=== PATIENT | female | born 1950 | race Caucasian/White ===

== ENCOUNTER → 2016-08-12 | Outpatient (CLI) | payer MEDICARE | END | disposition home or self-care (01) | LOC: LABWHC1 10:39 | PROVIDERS: ATTEND Otolaryngology | DX: J30.9 Allergic rhinitis, unspecified (principal) | CPT/HCPCS: 36415 ==

== ENCOUNTER 2018-07-08 09:53 | Day surgery (SDC) | payer MEDICARE ==
[2018-07-06 10:52] VITALS: BMI 27.9
[~2018-07-08 09:53] MED LIST: LACTATED RINGERS 1,000 ML IV SCH
[2018-07-08 10:37] VITALS: TEMP 98.5
[2018-07-08] MEDS ORDERED: PROPOFOL 10 MG/ML 20 ML VIAL IV ONE (11:25)
[2018-07-08] MEDS ORDERED: LIDOCAINE 1% INJ 10MG/ML (20 ML MDV) ONE (11:25)
--- NOTE | 2018-07-08 11:33 | P.PCN ---
Date of Procedure: 07/08/18 Procedure(s) Performed: BRIEF HISTORY: Patient is a 60-year-old, pleasant, white female, scheduled for an upper endoscopy with possible dilation as a part of variation of GERD and intermittent dysphagia to solids for the last 6 months duration. She has been maintained on Prilosec 20 mg daily.. PROCEDURE PERFORMED: Esophagogastroduodenoscopy with biopsy. PREOPERATIVE DIAGNOSIS: GERD and intermittent dysphagia to solids. IV sedation per anesthesia. PROCEDURE: After informed consent was obtained, the patient was brought into the endoscopy unit. IV sedation was administered by Anesthesia under continuous monitoring. Initially the Olympus GIF-140 video endoscope was inserted into the mouth. Esophagus intubated without any difficulty. It was gradually advanced into the stomach and duodenum and carefully examined. The bulb and the second part of the duodenum appeared normal. The scope at this time was withdrawn to the stomach, adequately insufflated with air, and upon careful examination, mucosa of the antrum and gastritis and biopsies were done from this area. The body, cardia and the fundus appeared normal. The scope was then withdrawn into the esophagus. Moderate size hiatal hernia noted. The GE junction was located at 34 cm from the incisors. The esophagus appeared normal. There were no erosions or ulcerations seen . There was no evidence of esophageal stricture. The proximal cervical esophagus was carefully examined and appeared normal and the patient tolerated the procedure well. IMPRESSION: 1. Small to moderate size hiatal hernia but no evidence of esophageal stricture or esophagitis. 2. Mild antral gastritis. RECOMMENDATIONS: The findings of this examination were discussed with the patient as well as a family. She was advised to follow with the biopsy results. She will continue with Prilosec 20 mg daily and follow antireflux measures..
[2018-07-08 12:40] VITALS: BP 135/83; PULSE 74; RESP 16
== END 2018-07-08 12:10 | disposition home or self-care (01) ==
LOC: ORWHC2ENDO 09:53
PROVIDERS: ATTEND Internal Medicine Gastroenterology
DX: K29.50 Unspecified chronic gastritis without bleeding (principal); K21.9 Gastro-esophageal reflux disease without esophagitis; K44.9 Diaphragmatic hernia without obstruction or gangrene; R13.10 Dysphagia, unspecified; Z79.82 Long term (current) use of aspirin; Z79.899 Other long term (current) drug therapy; Z88.8 Allergy status to other drugs, medicaments and biological substances
CPT/HCPCS: 43239; 88305

== ENCOUNTER 2019-11-10 02:09 | Emergency (ER) | payer MEDICARE ==
[2019-11-10 02:18] VITALS: BP 182/99; PULSE 78; RESP 18; TEMP 98.2
[2019-11-10] MEDS ORDERED: METOCLOPRAMIDE 5 MG/ML 2 ML VIAL IVP STA (02:53)
[2019-11-10] MEDS ORDERED: SODIUM CHLORIDE 0.9% 500 ML 500 ML IV ONE (02:53)
[2019-11-10] MEDS ORDERED: MORPHINE SULFATE 4 MG/ML SYRINGE IVP STA (02:56)
--- NOTE | 2019-11-10 03:09 | ED ---
Headache HPI - General Chief Complaint: Headache Stated Complaint: Headache Time Seen by Provider: 11/10/19 02:46 Mode of arrival: ambulatory Limitations: no limitations - History of Present Illness Initial Comments: Here in the previously healthy 69-year-old female who presents the ER today for evaluation of a left frontal headache. Patient reports that headache began suddenly, was in the eye area. Was associated with some watering of the eye but no runny nose. She has no history of headaches no history of migraines never had a headache like this. She reports she took 2 aspirin and the headache seems to be improving upon arrival however since this is so atypical for her she decided to come to ER. - Related Data Home Medications Medication Instructions Recorded Confirmed Omeprazole [PriLOSEC] 20 mg PO AC-BRKFST 07/01/15 07/08/18 Allergies Allergy/AdvReac Type Severity Reaction Status Date / Time hydroxyzine HCl [From Atarax] Allergy Severe dizzy, Verified 11/10/19 02:18 could not walk, SOB milk Allergy Unknown Verified 11/10/19 02:18 pineapple Allergy Unknown Verified 11/10/19 02:18 walnut Allergy Unknown Verified 11/10/19 02:18 Review of Systems ROS Statement: Those systems with pertinent positive or pertinent negative responses have been documented in the HPI. ROS Other: All systems not noted in ROS Statement are negative. Past Medical History Past Medical History: GERD/Reflux, Skin Disorder Additional Past Medical History / Comment(s): hiatal hernia, eczema, History of Any Multi-Drug Resistant Organisms: None Reported Past Surgical History: Breast Surgery Additional Past Surgical History / Comment(s): cyst removed from left breast Past Anesthesia/Blood Transfusion Reactions: Motion Sickness Past Psychological History: Anxiety Smoking Status: Never smoker Past Alcohol Use History: Rare Past Drug Use History: None Reported - Past Family History Mother Family Medical History: Cancer Additional Family Medical History / Comment(s): "was a bleeder" General Exam - General Exam Comments Initial Comments: Physical Exam GENERAL: Patient is well-developed and well-nourished. Patient is nontoxic and well- hydrated and is in no distress. HENT: Normocephalic, Atraumatic. EYES: PERRL, EOMI PULMONARY: Unlabored respirations. No audible rales rhonchi or wheezing was noted. CARDIOVASCULAR: There is a regular rate and rhythm without any murmurs gallops or rubs. ABDOMEN: Soft and nontender with normal bowel sounds. SKIN: Skin is clear with no lesions or rashes and otherwise unremarkable. : Deferred NEUROLOGIC: Patient is alert and oriented x3. Moving all extremities spontaneously Cranial nerves II through XII grossly intact MUSCULOSKELETAL: Normal extremities with adequate strength and full range of motion. No lower extremity swelling or edema. No calf tenderness. PSYCHIATRIC: Normal psychiatric evaluation. Limitations: no limitations Course Vital Signs 11/10/19 02:13 Temperature 98.2 F Pulse Rate 78 Respiratory 18 Rate Blood Pressure 182/99 O2 Sat by Pulse 98 Oximetry Medical Decision Making - Medical Decision Making Patient was seen and evaluated history is obtained from patient and at bedside Previously healthy 69-year-old female had tearing eye and pain that she described as a left-sided headache, no focal neurologic deficits Headaches aren't improving upon arrival however patient was placed on 2 L nasal cannula oxygen and given her age and computed tomography scan of the head was obtained Patient was reevaluated and reported her headache resolved completely CT results were unremarkable, these were discussed with the patient. This time patient's comfortable the plan for discharge home and outpatient follow-up Disposition Clinical Impression: Cluster headache Disposition: HOME SELF-CARE Condition: Stable Instructions (If sedation given, give patient instructions): Acute Headache (ED) Is patient prescribed a controlled substance at d/c from ED?: No Referrals: Semaj Mar DO [Primary Care Provider] - 1-2 days
--- NOTE | 2019-11-10 03:15 | CT ---
EXAMINATION TYPE: CT brain wo con DATE OF EXAM: 11/10/2019 COMPARISON: None HISTORY: Headache CT DLP: 1142.40 mGycm Automated exposure control for dose reduction was used. There is cerebral cortical atrophy. There is no mass effect nor midline shift. There is no sign of in tracranial hemorrhage. The calvarium is intact. There is no evidence of cerebral edema. Skull base is intact. IMPRESSION: Cerebral atrophy. No acute intracranial abnormality.
== END 2019-11-10 04:14 | disposition home or self-care (01) ==
LOC: EC 02:09
DX: G44.009 Cluster headache syndrome, unspecified, not intractable (principal); K21.9 Gastro-esophageal reflux disease without esophagitis; Z79.899 Other long term (current) drug therapy; Z88.8 Allergy status to other drugs, medicaments and biological substances; Z91.011 Allergy to milk products; Z91.018 Allergy to other foods
CPT/HCPCS: 70450; 96374; 96375; 99284

== ENCOUNTER → 2020-12-28 | Outpatient (CLI) | payer MEDICARE ==
--- NOTE | 2021-01-03 12:26 | MM ---
Reason for exam: screening (asymptomatic). Last mammogram was performed 9 years and 7 months ago. History: Patient is postmenopausal. Benign excisional biopsy of the left breast, February 07, 2006. Physical Findings: A clinical breast exam by your physician is recommended on an annual basis and results should be correlated with mammographic findings. MG 3D Screening Mammo W/Cad Bilateral CC and MLO view(s) were taken. Prior study comparison: May 27, 2011, bilateral digital screening mammo w/CAD. July 03, 2006, left diagnostic mammogram w/CAD. The breast tissue is heterogeneously dense. This may lower the sensitivity of mammography. Stable benign calcifications. No significant changes when compared with prior studies. ASSESSMENT: Benign, BI-RAD 2 RECOMMENDATION: Routine screening mammogram of both breasts in 1 year.
== END | disposition home or self-care (01) ==
LOC: RADMAMWWP 15:35
PROVIDERS: ATTEND Internal Medicine
DX: Z12.31 Encounter for screening mammogram for malignant neoplasm of breast (principal); Z78.0 Asymptomatic menopausal state
CPT/HCPCS: 77063; 77067

== ENCOUNTER → 2021-01-01 | Outpatient (CLI) | payer MEDICARE ==
--- NOTE | 2021-01-02 17:23 | BD ---
EXAMINATION TYPE: Axial Bone Density DATE OF EXAM: 01/01/2021 COMPARISON: NONE CLINICAL HISTORY: Height: 62 IN Weight: 186 LBS FRAX RISK QUESTIONS: History of Fracture in Adulthood: LT KNEE AGE 65 RISK FACTORS HISTORY OF: Active: YES Diet low in dairy products/other sources of calcium: YES Postmenopausal woman: AGE 52 MEDICATIONS: Additional Medications: CALCIUM, VIT D, OMEPRAZOLE, VITAMINS EXAM MEASUREMENTS: Bone mineral densitometry was performed using the [employer] System. Bone mineral density as measured about the Lumbar spine is: ----- L1-L4(G/cm2): 1.125 T Score Values are as follows: ----- L2: -0.4 ----- L3: 0.2 ----- L4: -1.0 ----- L1-L4: -0.5 Bone mineral density BASELINE Bone mineral density about the R hip (g/cm2): 0.789 Bone mineral density about the L hip (g/cm2): 0.781 T Score values are as follows: -----R Neck: -1.8 -----L Neck: -1.8 -----R Total: -1.9 -----L Total: -1.7 Bone mineral density BASELINE IMPRESSION: Osteopenia (T Score between -2.5 and -1). There is slightly increased risk of fracture and the patient may be considered for treatment. Re-Screen 2-5 years. NOTE: T-SCORE=SD OF THE YOUNG ADULT MEAN.
== END | disposition home or self-care (01) ==
LOC: RADBDWWP 16:08
PROVIDERS: ATTEND Internal Medicine
DX: M85.89 Other specified disorders of bone density and structure, multiple sites (principal)
CPT/HCPCS: 77080

== ENCOUNTER 2021-02-25 13:04 | Emergency (ER) | payer MEDICARE ==
[2021-02-25 13:23] VITALS: RESP 18
[2021-02-25] MEDS ORDERED: KETOROLAC 15 MG/ML 1 ML VIAL IVP STA (13:26)
[2021-02-25] MEDS ORDERED: SODIUM CHLORIDE 0.9% 500 ML 500 ML IV STA (13:36)
--- NOTE | 2021-02-25 13:38 | ED ---
General Adult HPI - General Chief complaint: Recheck/Abnormal Lab/Rx Stated complaint: Fever,Headache Time Seen by Provider: 02/25/21 13:25 Source: patient Mode of arrival: ambulatory Limitations: no limitations - History of Present Illness Initial comments: Dictation was produced using [employer] dictation software. please excuse any grammatical, word or spelling errors. Chief Complaint: 70-year-old female presents emergency department for myalgias, headache, fever nausea after pfizer covid vaccine booster History of Present Illness: Patient is a 70-year-old female she has no significant past medical history. Patient states that yesterday she had her coronavirus vaccine booster from [employer] She had the vaccine yesterday aftern oon. That night she began having symptoms of fever, chills, headache and myalgias. Patient states she had similar symptoms after the second shot of the vaccine series back in July. States that her symptoms weren't this severe. Patient reports feeling fine earlier in the day yesterday. She denies any chest pain or shortness of breath. The ROS documented in this emergency department record has been reviewed and confirmed by me. Those systems with pertinent positive or negative responses h ave been documented in the HPI. All other systems are other negative and/or noncontributory. PHYSICAL EXAM: General Impression: Alert and oriented x3, not in acute distress HEENT: Normocephalic atraumatic, extra-ocular movements intact, pupils equal and reactive to light bilaterally, mucous membranes moist. Cardiovascular: Heart regular rate and rhythm Chest: Able to complete full sentences, no retractions, no tachypnea Abdomen: abdomen soft, non-tender, non-distended, no organomegaly Musculoskeletal: Pulses present and equal in all extremities, no peripheral edema Motor: no focal deficits noted Neurological: CN II-XII grossly intact, no focal motor or sensory deficits noted Skin: Intact with no visualized rashes Psych: Normal affect and mood ED course: 70-year-old female presents to the emergency department for symptoms of myalgias headache, poor appetite after vaccine booster. Signs upon arrival are within acceptable limits. Discussed with patient that these are expected symptoms after vaccine booster. Patient would like to have basic labs and fluids.Laboratory evaluation obtained. CBC metabolic panel is within acceptable limits. Carinal virus is negative. Patient reevaluated at bedside at 3:00 PM 5 be stable medical condition. Patient is provided reassurance patient is told that she is expected to have these symptoms after having the vaccine booster. 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 Patient otherwise stable and agreeable for discharge. - Related Data Home Medications Medication Instructions Recorded Confirmed Omeprazole [PriLOSEC] 20 mg PO AC-BRKFST 07/01/15 02/25/21 Ascorbic Acid [Vitamin C] 1,000 mg PO DAILY 02/25/21 02/25/21 Aspirin 362 mg PO BID PRN 02/25/21 02/25/21 Calcium Carbonate [Calcium] 600 mg PO DAILY 02/25/21 02/25/21 Cholecalciferol [Vitamin D3 (25 25 mcg PO DAILY 02/25/21 02/25/21 Mcg = 1000 Iu)] Vitamin B Complex 1 tab PO DAILY 02/25/21 02/25/21 Allergies Allergy/AdvReac Type Severity Reaction Status Date / Time hydroxyzine HCl [From Atarax] Allergy Severe dizzy, Verified 02/25/21 14:04 could not walk, SOB milk Allergy Unknown Verified 02/25/21 14:04 pineapple Allergy Unknown Verified 02/25/21 14:04 walnut Allergy Unknown Verified 02/25/21 14:04 Review of Systems ROS Statement: Those systems with pertinent positive or pertinent negative responses have been documented in the HPI. ROS Other: All systems not noted in ROS Statement are negative. Past Medical History Past Medical History: GERD/Reflux, Skin Disorder Additional Past Medical History / Comment(s): hiatal hernia, eczema, History of Any Multi-Drug Resistant Organisms: None Reported Past Surgical History: Breast Surgery Additional Past Surgical History / Comment(s): cyst removed from left breast Past Anesthesia/Blood Transfusion Reactions: Motion Sickness Past Psychological History: Anxiety Smoking Status: Never smoker Past Alcohol Use History: Rare Past Drug Use History: None Reported - Past Family History Mother Family Medical History: Cancer Additional Family Medical History / Comment(s): "was a bleeder" General Exam Limitations: no limitations Course Vital Signs 02/25/21 02/25/21 13:17 14:07 Temperature 99.1 F Pulse Rate 106 H Respiratory 18 18 Rate Blood Pressure 147/91 O2 Sat by Pulse 98 Oximetry Medical Decision Making - Lab Data Result diagrams: 02/25/21 14:07 02/25/21 14:07 Lab Results 02/25/21 02/25/21 02/25/21 Range/Units 14:07 14:07 14:14 WBC 7.7 (3.8-10.6) k/uL RBC 4.46 (3.80-5.40) m/uL Hgb 14.1 (11.4-16.0) gm/dL Hct 42.6 (34.0-46.0) % MCV 95.5 (80.0-100.0) fL MCH 31.6 (25.0-35.0) pg MCHC 33.1 (31.0-37.0) g/dL RDW 12.3 (11.5-15.5) % Plt Count 321 (150-450) k/uL MPV 6.6 Neutrophils % 91 % Lymphocytes % 4 % Monocytes % 3 % Eosinophils % 0 % Basophils % 1 % Neutrophils # 7.0 (1.3-7.7) k/uL Lymphocytes # 0.3 L (1.0-4.8) k/uL Monocytes # 0.2 (0-1.0) k/uL Eosinophils # 0.0 (0-0.7) k/uL Basophils # 0.0 (0-0.2) k/uL Sodium 133 L (137-145) mmol/L Potassium 4.4 (3.5-5.1) mmol/L Chloride 100 (98-107) mmol/L Carbon Dioxide 21 L (22-30) mmol/L Anion Gap 12 mmol/L BUN 10 (7-17) mg/dL Creatinine 0.66 (0.52-1.04) mg/dL Est GFR (CKD-EPI)AfAm >90 (>60 ml/min/1.73 sqM) Est GFR (CKD-EPI)NonAf 90 (>60 ml/min/1.73 sqM) Glucose 125 H (74-99) mg/dL Calcium 8.9 (8.4-10.2) mg/dL Coronavirus (PCR) Not Detected (Not Detectd) Disposition Clinical Impression: Vaccine reaction Disposition: HOME SELF-CARE Condition: Good Instructions (If sedation given, give patient instructions): Coronavirus Disease 2019 (COVID-19) Is patient prescribed a controlled substance at d/c from ED?: No Referrals: Fady White MD [Primary Care Provider] - 1-2 days
[2021-02-25 14:20] LABS: Basophils % (A) 1 %; Eosinophils % (A) 0 %; HCT 42.6 % (34.0-46.0); HGB 14.1 gm/dL (11.4-16.0); Lymphocytes # (A) 0.3 k/uL (1.0-4.8); Lymphocytes % (A) 4 %; MCH 31.6 pg (25.0-35.0); MCHC 33.1 g/dL (31.0-37.0); MCV 95.5 fL (80.0-100.0); Mean Platelet Volume 6.6; Monocytes # (A) 0.2 k/uL (0-1.0); Monocytes % (A) 3 %; Neutrophils % (A) 91 %; Platelet Count 321 k/uL (150-450); RBC 4.46 m/uL (3.80-5.40); RDW 12.3 % (11.5-15.5); WBC 7.7 k/uL (3.8-10.6)
[2021-02-25 14:30] LABS: African American GFR (CKD) >90 (>60 ml/min/1.73 sqM); Anion Gap 12 mmol/L; Blood Urea Nitrogen 10 mg/dL (7-17); Calcium 8.9 mg/dL (8.4-10.2); Carbon Dioxide 21 mmol/L (22-30); Chloride 100 mmol/L (98-107); Glucose 125 mg/dL (74-99); Non-African American GFR(CKD) 90 (>60 ml/min/1.73 sqM); Sodium 133 mmol/L (137-145)
[2021-02-25 14:51] LABS: Potassium 4.4 mmol/L (3.5-5.1)
[2021-02-25 15:40] VITALS: BP 144/77; PULSE 87; TEMP 99
== END 2021-02-25 15:39 | disposition home or self-care (01) ==
LOC: EC 13:04
DX: R50.83 Postvaccination fever (principal); R51.9 Headache, unspecified; T50.B95A Adverse effect of other viral vaccines, initial encounter; K21.9 Gastro-esophageal reflux disease without esophagitis; Z79.82 Long term (current) use of aspirin; Z79.899 Other long term (current) drug therapy; Z20.822 Contact with and (suspected) exposure to COVID-19
CPT/HCPCS: 36415; 80048; 85025; 87635; 99284; 96374; J1885; 99283

== ENCOUNTER 2021-10-29 07:13 | Emergency (ER) | payer MEDICARE ==
[2021-10-29 07:19] VITALS: TEMP 99.2
[2021-10-29] MEDS ORDERED: ACETAMINOPHEN TAB 500 MG TAB PO STA (07:40)
[2021-10-29] MEDS ORDERED: IBUPROFEN 600 MG TAB PO STA (07:40)
[2021-10-29] MEDS ORDERED: SODIUM CHLORIDE 0.9% 1,000 ML IV ONE (07:45)
--- NOTE | 2021-10-29 08:00 | ED ---
General Adult HPI - General Chief complaint: Shortness of Breath Stated complaint: COVID+ Time Seen by Provider: 10/29/21 07:19 Source: patient, RN notes reviewed Mode of arrival: ambulatory Limitations: no limitations - History of Present Illness Initial comments: This is a 71-year-old female presents emergency Department with chief complaint of: 19. Patient states she started with symptoms one week ago. Patient states started sore throat, cough congestion bodyaches fevers chills slight nausea. Patient states she just not improvingconcerned which prompted her to come emergency department. Denies any known sick contacts otherwise. Denies any diarrhea,, dysuria - Related Data Home Medications Medication Instructions Recorded Confirmed Omeprazole [PriLOSEC] 20 mg PO AC-BRKFST 07/01/15 02/25/21 Ascorbic Acid [Vitamin C] 1,000 mg PO DAILY 02/25/21 02/25/21 Aspirin 362 mg PO BID PRN 02/25/21 02/25/21 Calcium Carbonate [Calcium] 600 mg PO DAILY 02/25/21 02/25/21 Cholecalciferol [Vitamin D3 (25 25 mcg PO DAILY 02/25/21 02/25/21 Mcg = 1000 Iu)] Vitamin B Complex 1 tab PO DAILY 02/25/21 02/25/21 Allergies Allergy/AdvReac Type Severity Reaction Status Date / Time hydroxyzine HCl [From Atarax] Allergy Severe dizzy, Verified 10/29/21 07:16 could not walk, SOB milk Allergy Unknown Verified 10/29/21 07:16 pineapple Allergy Unknown Verified 10/29/21 07:16 walnut Allergy Unknown Verified 10/29/21 07:16 Review of Systems ROS Statement: Those systems with pertinent positive or pertinent negative responses have been documented in the HPI. ROS Other: All systems not noted in ROS Statement are negative. Past Medical History Past Medical History: GERD/Reflux, Skin Disorder Additional Past Medical History / Comment(s): hiatal hernia, eczema, History of Any Multi-Drug Resistant Organisms: None Reported Past Surgical History: Breast Surgery Additional Past Surgical History / Comment(s): cyst removed from left breast Past Anesthesia/Blood Transfusion Reactions: Motion Sickness Past Psychological History: Anxiety Smoking Status: Never smoker Past Alcohol Use History: Rare Past Drug Use History: None Reported - Past Family History Mother Family Medical History: Cancer Additional Family Medical History / Comment(s): "was a bleeder" General Exam Limitations: no limitations General appearance: alert, in no apparent distress Head exam: Present: atraumatic, normocephalic, normal inspection Eye exam: Present: normal appearance, PERRL, EOMI. Absent: scleral icterus, conjunctival injection, periorbital swelling ENT exam: Present: normal exam, normal oropharynx, mucous membranes moist Neck exam: Present: normal inspection, full ROM. Absent: tenderness, meningismus, lymphadenopathy Respiratory exam: Present: normal lung sounds bilaterally. Absent: respiratory distress, wheezes, rales, rhonchi, stridor Cardiovascular Exam: Present: normal rhythm, tachycardia, normal heart sounds. Absent: systolic murmur, diastolic murmur, rubs, gallop, clicks GI/Abdominal exam: Present: soft, normal bowel sounds. Absent: distended, tenderness, guarding, rebound, rigid Course Vital Signs 10/29/21 07:16 Temperature 99.2 F Pulse Rate 113 H Respiratory 18 Rate Blood Pressure 149/71 O2 Sat by Pulse 97 Oximetry Medical Decision Making - Medical Decision Making Patient will receive monoclonal antibodies. Patient discharged in stable condition advised to continue to alternate Tylenol Motrin return parameters were discussed. Disposition Clinical Impression: COVID-19 Disposition: HOME SELF-CARE Condition: Stable Instructions (If sedation given, give patient instructions): COVID-19 (Coronavirus Disease 2019) (ED) Additional Instructions: Please return to the Emergency Department if symptoms worsen or any other concerns. Is patient prescribed a controlled substance at d/c from ED?: No Referrals: Fady White MD [Primary Care Provider] - 1-2 days Time of Disposition: 07:59
[2021-10-29] MEDS ORDERED: BEBTELOVIMAB (EUA) 175 MG/2 ML VIAL IV ONE (08:30)
--- NOTE | 2021-10-29 08:30 | XR ---
EXAMINATION TYPE: XR chest 2V DATE OF EXAM: 10/29/2021 COMPARISON: NONE HISTORY: Fever and fever TECHNIQUE: Frontal and lateral views of the chest are obtained. FINDINGS: Grossly unremarkable lungs. No pleural effusion or pneumothorax. No gross cardiomegaly. Scl erotic changes within the proximal humeral diaphysis, likely benign. IMPRESSION: No definite acute pulmonary abnormality identified.
[2021-10-29 09:49] VITALS: BP 139/73; PULSE 88; RESP 18
== END 2021-10-29 09:40 | disposition home or self-care (01) ==
LOC: EC 07:13
DX: U07.1 COVID-19 (principal); K21.9 Gastro-esophageal reflux disease without esophagitis; F41.9 Anxiety disorder, unspecified; Z91.011 Allergy to milk products; Z91.018 Allergy to other foods
CPT/HCPCS: 99284; 71046; M0222; Q0222; 96360

== ENCOUNTER → 2023-01-02 | Outpatient (CLI) | payer MEDICARE ==
--- NOTE | 2023-01-02 19:51 | BD ---
EXAMINATION TYPE: Axial Bone Density DATE OF EXAM: 01/02/2023 CLINICAL HISTORY: 72 years old Female. ICD-10 CODE: M81.0 SCREENING Height: 63in Weight: 193lb FRAX RISK QUESTIONS: History of Fracture in Adulthood: yes Secondary Osteoporosis: RISK FACTORS HISTORY OF: Active: yes Diet low in dairy products/other sources of calcium: yes Postmenopausal woman: yes If Premenopausal, do you have irregular periods: MEDICATIONS: Additional Medications: bp med, reflux med Additional History: patella and foot fx EXAM MEASUREMENTS: Bone mineral densitometry was performed using the [employer] System. Bone mineral density as measured about the Lumbar spine is: ----- L1-L4(G/cm2): 1.062 T Score Values are as follows: ----- L1: -1.1 ----- L2: -1.2 ----- L3: -0.9 ----- L4: -1.0 ----- L1-L4: -1.0 Z Score Values are as follows: ----- L1: -0.1 ----- L2: -0.2 ----- L3: 0.1 ----- L4: 0.0 ----- L1-L4: 0.0 Bone mineral density has: Decreased -5.6% since study of: 01-01-21 Bone mineral density about the R hip (g/cm2): 0.779 Bone mineral density about the L hip (g/cm2): 0.788 T Score values are as follows: -----R Neck: -1.6 -----L Neck: -1.6 -----R Total: -1.8 -----L Total: -1.7 Z Score values are as follows: -----R Neck: -0.3 -----L Neck: -0.3 -----R Total: -0.7 -----L Total: -0.7 Bone mineral density has: Decreased -0.4% since study of: 01-01-21 FRAX%s: The graph provided illustrates a 10.4% chance for a major osteoporotic fx and a 1.9% chance f or the hips probability for fx in 10 years time. IMPRESSION: Osteopenia (T Score between -2.5 and -1). There is slightly increased risk of fracture and the patient may be considered for treatment. Re-Screen 2-5 years. NOTE: T-SCORE=SD OF THE YOUNG ADULT MEAN.
--- NOTE | 2023-01-05 23:46 | MM ---
Reason for Exam: Screening (asymptomatic). Last mammogram was performed 2 year(s) and 0 month(s) ago. Patient History: Menarche at age 13. First Full-Term at age 21. Postmenopausal. 02/07/2006, Benign Excisional Biopsy on the left side. Risk Values: Kiara 5 year model risk: 1.9%. NCI Lifetime model risk: 4.8%. Prior Study Comparison: 07/03/2006 Left Diagnostic Mammogram, [facility]. 05/27/2011 Bilateral Screening Mammogram, [facility]. 12/28/2020 Bilateral Screening Mammogram, [facility]. Tissue Density: The breast tissue is heterogeneously dense. This may lower the sensitivity of mammography. Findings: Analyzed By CAD. On the left, medial nodularity on the CC view was not well seen previously. This may represent superimposition shadow but further evaluation is recommended. Otherwise, no significant change. Overall Assessment: Incomplete: need additional imaging evaluation, BI-RAD 0 Management: Special View Mammogram of the left breast. Diagnostic Breast Ultrasound of the left breast. Additional views including 3-D CC rolled lateral and 3-D LM views. Targeted ultrasound based on positioning as determined on additional views. [facility] will attempt to contact patient to return for supplemental views and ultrasound if indicated. Electronically signed and approved by: Rin Cordero M.D. Radiologist
== END | disposition home or self-care (01) ==
LOC: RADMAMWWP 09:53
PROVIDERS: ATTEND Internal Medicine
DX: Z12.31 Encounter for screening mammogram for malignant neoplasm of breast (principal); M81.0 Age-related osteoporosis without current pathological fracture; M85.89 Other specified disorders of bone density and structure, multiple sites; Z78.0 Asymptomatic menopausal state
CPT/HCPCS: 77063; 77067; 77080

== ENCOUNTER → 2023-01-14 | Outpatient (CLI) | payer MEDICARE ==
--- NOTE | 2023-01-14 10:59 | MM ---
Reason for Exam: Additional evaluation requested from abnormal screening. Last screening mammogram was performed less than 1 month ago. Patient History: Menarche at age 13. First Full-Term at age 21. Postmenopausal. 02/07/2006, Benign Excisional Biopsy on the left side. Risk Values: Kiara 5 year model risk: 1.9%. NCI Lifetime model risk: 4.8%. Prior Study Comparison: 05/27/2011 Bilateral Screening Mammogram, [facility]. 12/28/2020 Bilateral Screening Mammogram, [facility]. 01/02/2023 Bilateral MG 3D screening mammo w/cad, [facility]. Tissue Density: Left: There are scattered fibroglandular densities. Findings: Analyzed By CAD. The area of nodular asymmetric density medial aspect of the left breast anterior to middle depth becomes much less defined on spot images as well as 3-D rolled images. Precautionary six-month follow-up recommended. Overall Assessment: Probably benign, BI-RAD 3 Management: Diagnostic Mammogram of the left breast in 6 months. . Results were given to the patient verbally at the time of exam. Patient should continue monthly self-breast exams. A clinical breast exam by your physician is recommended on an annual basis. This exam should not preclude additional follow-up of suspicious palpable abnormalities. Note on Kiara scores and lifetime risk: 1. A Kiara score greater than 3% is considered moderate risk. If this is the case, consider specialist referral to assess eligibility for a risk reducing agent. 2. If overall lifetime risk for the development of breast cancer is 20% or higher, the patient may qualify for future screening with alternating mammogram and breast MRI. Electronically signed and approved by: Rin Cordero M.D. Radiologist
== END | disposition home or self-care (01) ==
LOC: RADMAMWWP 10:11
PROVIDERS: ATTEND Internal Medicine
DX: R92.8 Other abnormal and inconclusive findings on diagnostic imaging of breast (principal); Z78.0 Asymptomatic menopausal state
CPT/HCPCS: 77065; G0279; 77061

== ENCOUNTER 2023-07-08 06:15 | Day surgery (SDC) | payer MEDICARE ==
[2023-07-03 14:57] VITALS: BMI 32.5
[~2023-07-08 06:15] MED LIST changes: -LACTATED RINGERS 1,000 ML IV SCH; +LIDOCAINE 1% (10MG/ML) FOR IV START INTRADERMA PRN
[2023-07-08] MEDS: LACTATED RINGERS 1,000 ML IV SCH (07:07)
[2023-07-08] MEDS ORDERED: MIDAZOLAM 2 MG/2 ML VIAL ONE (07:18)
[2023-07-08] MEDS ORDERED: PROPOFOL 10 MG/ML 20 ML VIAL IV ONE (07:18)
[2023-07-08] MEDS ORDERED: GLYCOPYRROLATE 0.2 MG/ML 2 ML VIAL ONE (07:18)
[2023-07-08] MEDS ORDERED: fentaNYL (PF) 50 MCG/ML 2 ML AMP ONE (07:18)
[2023-07-08 07:23] VITALS: RESP 16; TEMP 98.2
--- NOTE | 2023-07-08 07:53 | P.PCN ---
Date of Procedure: 07/08/23 Procedure(s) Performed: Brief history: Patient is a pleasant 73-year-old white female scheduled for an upper endoscopy as well as colonoscopy as part of evaluation of GERD and screening for colon cancer. Procedure performed: Esophagogastroduodenoscopy with biopsy Colonoscopy with snare polypectomy Preoperative diagnosis: GERD Screening for colon cancer Anesthesia: MAC Procedure: After informed consent was obtained from the patient was brought into the endoscopy unit and IV sedation was administered by anesthesia under continuous monitoring. Initially upper endoscopy was done. The Olympus GF 160 video endoscope was inserted inserted into the mouth and esophagus intubated without any difficulty and was gradually advanced into the stomach and duodenum and carefully examined. The bulb and second part of the duodenum appeared normal. The scope was then withdrawn into the stomach adequately insufflated with air and upon careful examination the antrum had mild antral gastritis and biopsies were done from this area. Mucosa of the body, cardia and fundus appeared normal. The scope was then withdrawn into the esophagus. Small hiatal hernia noted. The GE junction was located at 40 cm to the incisors. It appeared regular with no erythema erosions or ulcerations. Rest of the esophagus appeared normal. Patient tolerated the procedure well. At this time the patient continued to remain sedation. Initial digital rectal examination was normal. Olympus CF 160 video colonoscope was then inserted into the rectum and gradually advanced to the cecum without any difficulty. Careful examination was performed as the scope was gradually being withdrawn. The prep was excellent. The cecum, appeared normal. In the ascending colon there was a 6 mm sessile polyp removed by cold snare polypectomy. Rest of the ascending colon, transverse colon, descending colon, sigmoid colon and rectum appeared normal. There was a 4 mm proximal rectal polyp that was removed by cold snare polypectomy. Scattered sigmoid diverticulosis seen. Retroflexion was performed in the rectum and no lesions were noted. Patient tolerated the procedure well. Impression: 1. Upper endoscopy revealed small hiatal hernia and mild gastritis 2. Colonoscopy revealed 6 mm ascending colon polyp and a 4 mm rectal polyp status post cold snare polypectomy and scattered sigmoid diverticulosis Recommendations: Findings of this examination were discussed with the patient as well as her family. She was advised to follow with the biopsy results. Continue with omeprazole 20 mg daily and follow antireflux measures. If the biopsy result adenoma she can have a repeat colonoscopy in 5 years.
[2023-07-08 08:34] VITALS: BP 130/79; PULSE 87
== END 2023-07-08 08:40 | disposition home or self-care (01) ==
LOC: ORWHC2ENDO 06:15
PROVIDERS: ATTEND Internal Medicine Gastroenterology
DX: Z12.11 Encounter for screening for malignant neoplasm of colon (principal); K29.50 Unspecified chronic gastritis without bleeding; D12.2 Benign neoplasm of ascending colon; D12.8 Benign neoplasm of rectum; K44.9 Diaphragmatic hernia without obstruction or gangrene; K57.30 Diverticulosis of large intestine without perforation or abscess without bleeding; K21.9 Gastro-esophageal reflux disease without esophagitis; I10 Essential (primary) hypertension; E78.5 Hyperlipidemia, unspecified; Z79.899 Other long term (current) drug therapy; Z88.8 Allergy status to other drugs, medicaments and biological substances
CPT/HCPCS: 88305; 45385; 43239; J2250; J3010; J2704

== ENCOUNTER → 2023-07-16 | Outpatient (CLI) | payer MEDICARE ==
--- NOTE | 2023-07-16 07:34 | MM ---
Reason for Exam: Follow-up at short interval from prior study. Last screening mammogram was performed 7 month(s) ago. Patient History: Menarche at age 13. First Full-Term at age 21. Postmenopausal. Risk Values: Kiara 5 year model risk: 1.9%. NCI Lifetime model risk: 4.6%. Prior Study Comparison: 12/28/2020 Bilateral Screening Mammogram, [facility]. 01/02/2023 Bilateral MG 3D screening mammo w/cad, [facility]. 01/14/2023 Left MG 3D work up w/cad LT, [facility]. Tissue Density: Left: There are scattered areas of fibroglandular density. Findings: Analyzed By CAD. Chronic nodularity inner aspect of the left breast posterior depth. The previous nodular asymmetry medial aspect of the left breast and a more anterior to middle depth has become less pronounced. Additional short interval follow-up recommended. Otherwise, no significant change. Overall Assessment: Probably benign, BI-RAD 3 Management: Diagnostic Mammogram of both breasts in 6 months. Total one-year follow-up left breast and annual exam of the right breast. Results were given to the patient verbally at the time of exam. Patient should continue monthly self-breast exams. A clinical breast exam by your physician is recommended on an annual basis. This exam should not preclude additional follow-up of suspicious palpable abnormalities. Note on Kiara scores and lifetime risk: 1. A Kiara score greater than 3% is considered moderate risk. If this is the case, consider specialist referral to assess eligibility for a risk reducing agent. 2. If overall lifetime risk for the development of breast cancer is 20% or higher, the patient may qualify for future screening with alternating mammogram and breast MRI. Electronically signed and approved by: Rin Cordero M.D. Radiologist
== END | disposition home or self-care (01) ==
LOC: RADMAMWWP 06:49
PROVIDERS: ATTEND Internal Medicine Gastroenterology
DX: N60.02 Solitary cyst of left breast (principal); Z78.0 Asymptomatic menopausal state
CPT/HCPCS: 77065; G0279; 77061

== ENCOUNTER → 2024-01-30 | Outpatient (CLI) | payer MEDICARE ==
--- NOTE | 2024-02-02 07:44 | MM ---
Reason for Exam: Follow-up at short interval from prior study. Last mammogram was performed 1 year(s) and 1 month(s) ago. Patient History: Menarche at age 13. First Full-Term at age 21. Postmenopausal. 02/07/2006, Benign Excisional Biopsy on the left side. Risk Values: Kiara 5 year model risk: 1.9%. NCI Lifetime model risk: 4.6%. Prior Study Comparison: 08/01/1998 Screening Mammogram, [facility]. 08/15/1998 Screening Mammogram, [facility]. 04/17/2000 Screening Mammogram, [facility]. 01/28/2006 Bilateral Diagnostic Mammogram, [facility]. 07/03/2006 Left Diagnostic Mammogram, [facility]. 05/27/2011 Bilateral Screening Mammogram, [facility]. 12/28/2020 Bilateral Screening Mammogram, [facility]. 01/02/2023 Bilateral MG 3D screening mammo w/cad, [facility]. 01/14/2023 Left MG 3D work up w/cad LT, [facility]. 07/16/2023 Left MG 3D diag mammo w/cad LT, [facility]. Tissue Density: There are scattered areas of fibroglandular density. Findings: Analyzed By CAD. The pattern is symmetrical. Previous nodular density is not well visualized. Punctate calcifications aren't region. Benign punctate calcifications are present bilaterally. Chronic Nodularity is within the left breast. No suspicious groups of microcalcifications, spiculated or lobular masses, architectural distortion or other secondary signs of malignancy are mammographically apparent. Overall Assessment: Benign, BI-RAD 2 Management: Screening Mammogram of both breasts in 1 year. A negative mammogram report should not preclude additional follow up of suspicious palpable abnormalities. Patient should continue monthly self breast exam. A clinical breast exam by your physician is recommended on an annual basis and results should be correlated with mammographic findings. Note on Kiara scores and lifetime risk: 1. A Kiara score greater than 3% is considered moderate risk. If this is the case, consider specialist referral to assess eligibility for a risk reducing agent. 2. If overall lifetime risk for the development of breast cancer is 20% or higher, the patient may qualify for future screening with alternating mammogram and breast MRI. [facility], , 01/30/2024 9:06 AM . Electronically signed and approved by: Grover Hernandez D.O. Radiologis
== END | disposition home or self-care (01) ==
LOC: RADMAMWWP 08:37
PROVIDERS: ATTEND Internal Medicine Gastroenterology
DX: R92.8 Other abnormal and inconclusive findings on diagnostic imaging of breast
CPT/HCPCS: 77062; 77066

== ENCOUNTER 2024-06-01 08:46 | Emergency (ER) | payer MEDICARE ==
[2024-06-01] MEDS: ACETAMINOPHEN TAB 500 MG TAB PO STA (09:13)
[2024-06-01 09:20] VITALS: RESP 18
--- NOTE | 2024-06-01 09:43 | XR ---
EXAMINATION TYPE: XR chest 2V DATE OF EXAM: 06/01/2024 9:30 AM COMPARISON: 10/29/2021 CLINICAL INDICATION: Female, 74 years old with history of fever, , TECHNIQUE: AP and lateral views FINDINGS: Heart mildly enlarged. Aorta within normal limits. Increased interstitial and vascular prominence. So me patchy opacity medial right base noted. No pleural effusion. IMPRESSION: 1. Mild cardiomegaly and possible mild pulmonary vascular congestion. Correlate for fluid status. 2. Patchy medial right basilar atelectasis and/or infiltrate. [facility], Workstation: [facility], 06/01/2024 9:41 AM
[2024-06-01 10:00] LABS: Influenza A Detected (Not Detectd); Influenza B Not Detected (Not Detectd); RSV Not Detected (Not Detectd)
--- NOTE | 2024-06-01 10:13 | ED ---
URI HPI - General Chief Complaint: Upper Respiratory Infection Stated Complaint: Congestion Time Seen by Provider: 06/01/24 08:48 Source: patient, RN notes reviewed Mode of arrival: wheelchair Limitations: no limitations - History of Present Illness Initial Comments: 74-year-old female presents emergency department with chief complaint of cough congestion. Patient states that she has not felt well recently. Patient states that she sat bodyaches increased nasal congestion started overnight. Possible fever patient states she feels very gassy also slight nausea. No chest pain. - Related Data Home Medications Medication Instructions Recorded Confirmed Omeprazole [PriLOSEC] 20 mg PO AC-BRKFST 07/01/15 07/03/23 Cholecalciferol [Vitamin D3 (25 50 mcg PO DAILY 02/25/21 07/03/23 Mcg = 1000 Iu)] Tolterodine Tartrate [Tolterodine 4 mg PO DAILY 07/03/23 07/03/23 Tartrate ER] Previous Rx's Medication Instructions Recorded Oseltamivir [Tamiflu] 75 mg PO Q12HR #10 cap 06/01/24 Allergies Allergy/AdvReac Type Severity Reaction Status Date / Time hydroxyzine HCl [From Atarax] Allergy Severe dizzy, Verified 06/01/24 08:54 could not walk, SOB milk Allergy Nausea & Verified 06/01/24 08:54 Vomiting & Diarrhea pineapple Allergy Nausea & Verified 06/01/24 08:54 Vomiting & Diarrhea walnut Allergy Nausea & Verified 06/01/24 08:54 Vomiting & Diarrhea Review of Systems ROS Statement: Those systems with pertinent positive or pertinent negative responses have been documented in the HPI. ROS Other: All systems not noted in ROS Statement are negative. Past Medical History Past Medical History: GERD/Reflux, Skin Disorder Additional Past Medical History / Comment(s): hiatal hernia, eczema, History of Any Multi-Drug Resistant Organisms: None Reported Past Surgical History: Breast Surgery Additional Past Surgical History / Comment(s): cyst removed from left breast Past Anesthesia/Blood Transfusion Reactions: Motion Sickness Past Psychological History: Anxiety Smoking Status: Never smoker Past Alcohol Use History: None Reported Past Drug Use History: None Reported - Past Family History Mother Family Medical History: Cancer Additional Family Medical History / Comment(s): "was a bleeder" General Exam Limitations: no limitations General appearance: alert, in no apparent distress Head exam: Present: atraumatic, normocephalic, normal inspection Eye exam: Present: normal appearance, PERRL, EOMI. Absent: scleral icterus, conjunctival injection, periorbital swelling ENT exam: Present: normal exam, normal oropharynx, mucous membranes moist Neck exam: Present: normal inspection, full ROM. Absent: tenderness, meningismus, lymphadenopathy Respiratory exam: Present: normal lung sounds bilaterally. Absent: respiratory distress, wheezes, rales, rhonchi, stridor Cardiovascular Exam: Present: normal rhythm, tachycardia, normal heart sounds. Absent: systolic murmur, diastolic murmur, rubs, gallop, clicks GI/Abdominal exam: Present: soft, normal bowel sounds. Absent: distended, tenderness, guarding, rebound, rigid Course Vital Signs 06/01/24 06/01/24 08:51 09:19 Temperature 98.6 F 101.4 F H Pulse Rate 110 H Respiratory 20 18 Rate Blood Pressure 167/88 O2 Sat by Pulse 97 Oximetry Medical Decision Making - Medical Decision Making Was pt. sent in by a medical professional or institution ([facility], [facility], urgent care, hospital, or custodial...) When possible be specific @ -No Did you speak to anyone other than the patient for history (EMS, parent, family, police, friend...)? What history was obtained from this source @ -No Did you review nursing and triage notes (agree or disagree)? Why? @ -I reviewed and agree with nursing and triage notes Were old charts reviewed (outside hosp., previous admission, EMS record, old EKG, old radiological studies, urgent care reports/EKG's, custodial records)? Report findings @ -No old charts were reviewed Differential Diagnosis (chest pain, altered mental status, abdominal pain women, abdominal pain men, vaginal bleeding, weakness, fever, dyspnea, syncope, headache, dizziness, GI bleed, back pain, seizure, CVA, palpatations, mental health, musculoskeletal)? @ -COVID 19, RSV, influenza, pneumonia, acute bronchitis, URI, this list is not all inclusive EKG interpreted by me (3pts min.). @ -[None none X-rays interpreted by me (1pt min.). @ -Chest x-ray shows no acute cardiopulmonary process. CT interpreted by me (1pt min.). @ -None done U/S interpreted by me (1pt. min.). @ -None done What testing was considered but not performed or refused? (CT, X-rays, U/S, labs)? Why? @ -None What meds were considered but not given or refused? Why? @ -None Did you discuss the management of the patient with other professionals (professionals i.e. , PA, [facility], lab, RT, psych nurse, social insurance analyst, insurance loss adjuster, teacher, information technology officer, case finishing machine adjuster)? Give summary @ -No Was smoking cessation discussed for >3mins.? @ -No Was critical care preformed (if so, how long)? @ -No Were there social determinants of health that impacted care today? How? (Homelessness, low income, unemployed, alcoholism, drug addiction, transportation, low edu. Level, literacy, decrease access to med. care, [facility], rehab)? @ -No Was there de-escalation of care discussed even if they declined (Discuss DNR or withdrawal of care, Hospice)? DNR status @ -No What co-morbidities impacted this encounter? (DM, HTN, Smoking, COPD, CAD, Cancer, CVA, ARF, Chemo, Hep., AIDS, mental health diagnosis, sleep apnea, morbid obesity)? @ -None Was patient admitted / discharged? Hospital course, mention meds given and route, prescriptions, significant lab abnormalities, going to OR and other pertinent info. @ -Charge patient is influenza A positive. Patient chest x-ray is unremarkable patient presented with fever given antipyretics to be discharged with Tamiflu. Undiagnosed new problem with uncertain prognosis? @ -No Drug Therapy requiring intensive monitoring for toxicity (Heparin, Nitro, Insulin, Cardizem)? @ -No Were any procedures done? @ -No Diagnosis/symptom? @ -Influenza A Acute, or Chronic, or Acute on Chronic? @ -Acute Uncomplicated (without systemic symptoms) or Complicated (systemic symptoms)? @ -Uncomplicated Side effects of treatment? @ -No Exacerbation, Progression, or Severe Exacerbation? @ -No Poses a threat to life or bodily function? How? (Chest pain, [place], [place], pneumonia, PE, COPD, DKA, ARF, appy, cholecystitis, CVA, Diverticulitis, Homicidal, Suicidal, threat to staff... and all critical care pts) @ -No - Lab Data Lab Results 06/01/24 Range/Units 09:16 Influenza Type A (PCR) Detected A (Not Detectd) Influenza Type B (PCR) Not Detected (Not Detectd) RSV (PCR) Not Detected (Not Detectd) SARS-CoV-2 (PCR) Not Detected (Not Detectd) Disposition Clinical Impression: Influenza A Disposition: HOME SELF-CARE Condition: Stable Instructions (If sedation given, give patient instructions): Influenza (ED) Additional Instructions: Please return to the Emergency Department if symptoms worsen or any other co ncerns. Prescriptions: Oseltamivir [Tamiflu] 75 mg PO Q12HR #10 cap Is patient prescribed a controlled substance at d/c from ED?: No Referrals: None,Stated [Primary Care Provider] - 1-2 days Time of Disposition: 10:13
[2024-06-01 10:42] VITALS: BP 151/88; PULSE 101; TEMP 99.3
== END 2024-06-01 10:42 | disposition home or self-care (01) ==
LOC: EC 08:46
DX: J10.1 Influenza due to other identified influenza virus with other respiratory manifestations (principal); Z91.011 Allergy to milk products; Z91.018 Allergy to other foods; Z88.8 Allergy status to other drugs, medicaments and biological substances
CPT/HCPCS: 71046; 87636; 99283